=== PATIENT | female | born 1960 | race African-American/Black ===

== ENCOUNTER 2024-07-07 05:57 | Inpatient (IN) | payer OTHER ==
[~2024-07-07] VITALS: Ht 172.7 cm; Wt 121.6 kg
[2024-07-07] MEDS ORDERED: POLYMYXIN B SULFATE 500,000 UNITS ONE (06:12)
[2024-07-07] MEDS ORDERED: ANESTHESIA TRAY IN PYXIS 1 EA TRAY MC ONE (06:12)
[2024-07-07] MEDS ORDERED: BUPIVACAINE 0.5 % PF 150 MG/30 ML VIAL ONE (06:12)
[2024-07-07] MEDS ORDERED: FENTANYL PF 100MCG/2ML AMPUL ONE ×2 (06:17→09:36)
[2024-07-07] MEDS ORDERED: MIDAZOLAM HCL 2 MG/2ML VIAL ONE (06:18)
[2024-07-07] MEDS ORDERED: TRANEXAMIC ACID 1,000 MG/10 ML VIAL ONE (07:47)
[2024-07-07] MEDS ORDERED: LIDOCAINE 2% 50 ML MDV IJ ONE (08:23)
[2024-07-07] MEDS ORDERED: LIDOCAINE 2%-EPI 1:100,000 30 ML VIAL ONE (08:26)
[2024-07-07] MEDS ORDERED: PROMETHAZINE HCL 12.5 MG/SUPP.RECT RC PRN (10:00)
[2024-07-07] MEDS ORDERED: ONDANSETRON HCL/PF 4 MG/2 ML VIAL IV PRN (10:00)
[2024-07-07] MEDS ORDERED: CLONIDINE HCL 0.1 MG TABLET PO PRN (10:00)
[2024-07-07] MEDS ORDERED: MAG HYDROX/AL HYDROX/SIMETH 30 ML UDC PO PRN ×2 (10:00→12:00)
[2024-07-07] MEDS ORDERED: HYDROMORPHONE 1 MG/1 ML DISP.SYRIN IM/IV/SC PRN (10:00)
[2024-07-07] MEDS ORDERED: MAGNESIUM HYDROXIDE 30 ML UDC PO PRN ×2 (10:00→12:00)
[2024-07-07] MEDS ORDERED: diphenhydrAMINE HCL 25 MG CAPSULE PO PRN (10:00)
[2024-07-07] MEDS ORDERED: BISACODYL SUPP (10 MG) 10 MG/SUPP.RECT SUPP.RECT RC PRN (11:30)
[2024-07-07] MEDS ORDERED: IV D5 LR 1,000 ML IV PRN (11:30)
[2024-07-07] MEDS ORDERED: SENNOSIDES 8.6 MG TABLET PO PRN (11:30)
[2024-07-07] MEDS ORDERED: ZOLPIDEM TARTRATE 5 MG TABLET PO PRN (11:30)
[2024-07-07] MEDS: HYDROMORPHONE 1 MG/1 ML DISP.SYRIN IM/IV/SC PRN (11:57)
[2024-07-07 12:00] VITALS: BP 122/80; TEMP 97.5; O2SAT 97
[2024-07-07] MEDS ORDERED: ACETAMINOPHEN 325 MG TABLET PO PRN (12:00)
[2024-07-07] MEDS ORDERED: HYDROCODONE/APAP 10/325MG TABLET PO PRN (12:00)
[2024-07-07] MEDS ORDERED: Z GUARD REMEDY 4 OZ OINT TP PRN (12:00)
[2024-07-07] MEDS ORDERED: ONDANSETRON HCL/PF 4 MG/2 ML VIAL IVP PRN (12:00)
[2024-07-07] MEDS ORDERED: ENOXAPARIN SODIUM 40 MG/0.4 ML DISP.SYRIN SQ SCH (12:00)
[2024-07-07] MEDS ORDERED: MORPHINE SULFATE INJ 4 MG/ML DISP.SYRIN IV PRN (12:00)
[2024-07-07] MEDS: SERTRALINE HCL 50 MG TABLET PO SCH (12:53)
[2024-07-07] MEDS ORDERED: LEVO175T7 PO (13:12)
[2024-07-07] MEDS ORDERED: SERT100T12 PO (13:12)
[2024-07-07] MEDS ORDERED: MULT-1275 PO (13:12)
[2024-07-07] MEDS: IV NS 0.9% 1,000 ML IV PRN (13:12)
[2024-07-07] MEDS: ANCEF 1 GM/50 ML D5W IV SCH (15:34)
[2024-07-07 16:00] VITALS: BP 107/60; TEMP 98.1; O2SAT 96
[2024-07-07] MEDS: DOCUSATE SODIUM 100 MG CAPSULE PO SCH (17:10)
[2024-07-07 19:06] VITALS: BP 121/69; TEMP 98.1; O2SAT 96
[2024-07-07] MEDS: LEVOTHYROXINE SODIUM 100 MCG TABLET PO SCH (21:01)
[2024-07-07] MEDS: FAMOTIDINE (20 MG) 20 MG TABLET PO SCH (21:01)
[2024-07-07] MEDS: oxyCODONE IR immediate release 5 MG TABLET PO PRN (23:06)
[2024-07-08] VITALS (7 sets, daily range): BP systolic 101–109; BP diastolic 50–68; TEMP 98–100; O2SAT 94–97
[2024-07-08 07:30] LABS: CALCIUM, SERUM 7.5 mg/dL (8.5-10.1); PHOSPHORUS 3.3 mg/dL (2.5-4.9); POTASSIUM 3.9 mmol/L (3.5-5.1)
[2024-07-08 07:44] LABS: BASOPHILS % (AUTO) 0.2 % (0.0-2.0); EOSINOPHILS % (AUTO) 0.2 % (0.0-6.0); HEMATOCRIT 26 % (33-45); HEMOGLOBIN 8.4 g/dL (11.5-14.8); LYMPHOCYTES # (AUTO) 0.8 K/uL (0.8-4.8); LYMPHOCYTES % (AUTO) 15.4 % (20.0-44.0); MEAN CORPUSCULAR HEMOGLOBIN 24 PG (26.0-33.0); MEAN CORPUSCULAR HGB CONC 32 g/dl (31.0-36.0); MEAN CORPUSCULAR VOLUME 75 fL (82-100); MONOCYTES # (AUTO) 0.4 K/uL (0.1-1.30); NEUTROPHILS # (AUTO) 3.7 K/uL (1.8-8.9); NEUTROPHILS % (AUTO) 75.2 % (43.0-81.0); PLATELET COUNT (AUTO) 204 K/uL (150-450); RED BLOOD CELL COUNT(AUTO) 3.55 MIL/uL (4.0-5.2); RED CELL DISTRIBUTION WIDTH 20.6 % (11.5-15.0)
[2024-07-08 08:29] LABS: THYROID STIMULATING HORMONE 2.31 uIU/mL (0.358-3.74)
[2024-07-08] MEDS: ASPIRIN 325 MG TABLET PO SCH (08:29)
[2024-07-08] MEDS: PANTOPRAZOLE 40 MG TABLET.DR PO SCH (08:29)
[2024-07-08] MEDS: ENOXAPARIN SODIUM 40 MG/0.4 ML DISP.SYRIN SQ SCH (08:39)
[2024-07-08] MEDS: oxyCODONE IR immediate release 5 MG TABLET PO PRN (09:57)
[2024-07-08] MEDS ORDERED: TAMSULOSIN 0.4 MG CAP.SR.24H PO SCH (10:00)
[2024-07-08] MEDS ORDERED: BETHANECHOL CHLORIDE (25 MG) 25 MG TABLET PO SCH (10:00)
[2024-07-08] MEDS: ACETAMINOPHEN 325 MG TABLET PO PRN (18:00)
[2024-07-09 04:10] VITALS: BP 116/60; TEMP 98; O2SAT 96
[2024-07-09 06:43] VITALS: BP 116/60; TEMP 98; O2SAT 96
[2024-07-09 20:00] VITALS: BP_SYST 116; BP_SYST 118; BP_DIAS 64; BP_DIAS 84; TEMP 98.2; TEMP 99; O2SAT 94; O2SAT 98
[2024-07-10 07:00] VITALS: BP 119/61; TEMP 97.7; O2SAT 97
== END 2024-07-10 11:30 | disposition home health service (06) | DRG 470 ==
LOC: DS 05:57 → MED 11:05
PROVIDERS: ADMIT Nurse Practitioner Acute Care; ATTEND Nurse Practitioner Acute Care
PROC: 0SRB0JZ Replacement of Left Hip Joint with Synthetic Substitute, Open Approach (ICD-10-PCS; principal; 2024-07-07)
DX: M16.12 Unilateral primary osteoarthritis, left hip (principal); Z68.41 Body mass index [BMI] 40.0-44.9, adult; E03.9 Hypothyroidism, unspecified; E66.9 Obesity, unspecified; Z98.84 Bariatric surgery status; F32.A Depression, unspecified; Z86.718 Personal history of other venous thrombosis and embolism; Z95.828 Presence of other vascular implants and grafts
CPT/HCPCS: 36415; 80048-TC; 80061-TC; 83735-TC; 84100-TC; 84443-TC; 85025-TC; 87081-TC; 97110-TC; 97116-TC; 97530-TC; 97535-TC; A4223; G0378; J0330; J0690; J1100; J1171; J1650; J1885; J2250; J2405; J2704; J3010; J3490; J7030; J7060